=== PATIENT | female | born 1960 | race Caucasian/White ===

== ENCOUNTER 2016-04-04 05:48 | Emergency (ER) | payer SELFPAY ==
[~2016-04-04] VITALS: Ht 157.5 cm; Wt 61.2 kg
[2016-04-04 05:48] VITALS: BP 114/64; PULSE 50; PULSE 60; RESP 10; TEMP 97.1; O2SAT 99
--- NOTE | 2016-04-04 05:48 | NUR ---
Pt noted to fell backward onto the wheelchair in front of ED waiting room, eyes closed, and appeared to have a syncopal episode. MARIELA martínez +MARIELA Minor immediately came to attend pt and brought pt to bed 2. Pt unconcious. Skin pale, cool, non-diaphretic. No injury or bleeding noted
--- NOTE | 2016-04-04 05:48 | NUR ---
Placed in room 02 . Placed on director of cardiac cath lab, blood pressure machine and pulse oximeter. To gown for exam. Side rails up. Report given to MARIELA Cook.
--- NOTE | 2016-04-04 05:50 | NUR ---
ER at bedside examining patient.
[2016-04-04] MEDS ORDERED: NACL 0.9% 1,000 ML IV ONE ×2 (05:55→06:45)
[2016-04-04] MEDS ORDERED: ONDANSETRON HCL 4 MG/2 ML VIAL IVP ONE (06:00)
--- NOTE | 2016-04-04 06:04 | NUR ---
Patient awake and answering questions, AAO x4, appears groggy and lethargic. Patient states she has been feeling unwell "since " and is taking care of her sister "who has cancer" patient thinks she "fainted at home in the bathroom and hit my buttocks" c/o 06/16 buttock pain and epigastric pain 06/16. patient states she had a history of DM, HTN, and Ulcers. Addendum: 04/04/16 at 0714 by SDEDLJ Denies hit to head at home,skin intact, pupils PERRLA.
[2016-04-04 06:07] LABS: BILIRUBIN,URINE 1+ (NEGATIVE); BLOOD, URINE NEGATIVE (NEGATIVE); CLARITY/URINE SL HAZY (CLEAR); COLOR,URINE YELLOW (YELLOW); GLUCOSE,URINE NEGATIVE (NEGATIVE); KETONES,URINE TRACE (NEGATIVE); LEUKOCYTE ESTERASE ,URINE NEGATIVE (NEGATIVE); NITRITE, URINE NEGATIVE (NEGATIVE); PH,URINE 5.5 (5.0-8.0); PROTEIN URINE 2+ (NEGATIVE)
--- NOTE | 2016-04-04 06:07 | NUR ---
Patient BP decreased of 85/53. MD Aranda informed, Verbal order for 2nd Liter of NS to be admin as bolus. Patient tolerating well. Will continue to monitor.
--- NOTE | 2016-04-04 06:10 | NUR ---
Medication reconciliation completed with information provided by patient. Any prior medication reconciliation on file was reviewed and corrected.
[2016-04-04] MEDS ORDERED: LISI10TA5 PO (06:12)
[2016-04-04] MEDS ORDERED: GLU500 PO (06:12)
[2016-04-04 06:13] LABS: BASOPHILS # (AUTO) 0.1 K/uL (0.0-0.2); BASOPHILS % (AUTO) 0.7 % (0.0-2.0); EOSINOPHILS # (AUTO) 0.3 K/uL (0.0-0.4); HEMATOCRIT 40.2 % (36-48); HEMOGLOBIN 13.2 g/dL (12.0-16.0); LYMPHOCYTES % (AUTO) 33.2 % (20.5-51.5); MEAN CORPUSCULAR HEMOGLOBIN 29 pg (27-31); MEAN CORPUSCULAR HGB CONC 33 % (32-36); MEAN CORPUSCULAR VOLUME 88 fL (79.0-98.0); MONOCYTES # (AUTO) 0.6 K/uL (0.0-1.0); MONOCYTES % (AUTO) 7.1 % (1.7-9.3); PLATELET COUNT (AUTO) 265 K/uL (130-430); RED BLOOD CELL COUNT(AUTO) 4.59 MIL/uL (4.2-6.2); RED CELL DISTRIBUTION WIDTH 13.1 % (9.0-15.0)
[2016-04-04 06:16] LABS: BARBITURATE, URINE NEGATIVE (NEG <=200); METHAMPHETAMINES SCREEN,URINE NEGATIVE (NEG <=500); URINE AMPHETAMINE NEGATIVE (NEG <=500)
[2016-04-04 06:17] LABS: BENZODIAZEPINE, URINE NEGATIVE (NEG <=150); CANNABINOID, URINE NEGATIVE (NEG <=50); COCAINE, URINE NEGATIVE (NEG <=150); OPIATE, URINE POSITIVE (NEG <=100); PHENCYCLIDINE SCREEN,URINE NEGATIVE (NEG <=25); UR TRICYCLIC ANTIDEPRESSANTS NEGATIVE (NEG <=300); URINE METHADONE NEGATIVE (NEG <=200); URINE OXYCODONE SCREEN NEGATIVE (NEG <=100); URINE PROPOXYPHENE SCREEN POSITIVE (NEG <=300)
[2016-04-04 06:26] LABS: BACTERIA,URINE FEW /HPF (None Seen); RBC,URINE 0-3 /HPF (0-3)
[2016-04-04 06:27] LABS: ANION GAP 6 (5-15); CHLORIDE 102 mmol/L (98-107); GLUCOSE 128 mg/dL (70-99); HYALINE CASTS, URINE 0-10 /LPF (None Seen); MUCUS,URINE 1+ /LPF (None Seen); POTASSIUM 3.4 mmol/L (3.5-5.1); SODIUM SERUM 137 mmol/L (136-145); UREA NITROGEN, BLOOD 11 mg/dL (8-21)
[2016-04-04 06:31] LABS: ALANINE AMINOTRANSFERASE 49 U/L (12-78); ALBUMIN 3.6 g/dL (3.4-4.8); ASPARTATE AMINOTRANSFERASE 34 U/L (10-37); LIPASE 416 U/L (73-393); TOTAL BILIRUBIN 0.4 mg/dL (0.0-1.0); TOTAL PROTEIN, SERUM 7.6 g/dL (6.4-8.3)
[2016-04-04 06:32] LABS: GFR AFRICAN AMERICAN 83 mL/min (>90); PROTHROMBIN TIME 11.3 SECS (9.5-12.5)
[2016-04-04] MEDS ORDERED: FAMOTIDINE PF 20 MG/2 ML VIAL IVP ONE (06:45)
--- NOTE | 2016-04-04 07:00 | NUR ---
Report given to Ирина SIERRA,care endorsed
[2016-04-04 07:07] LABS: ALCOHOL, BLOOD < 3 mg/dL (<10)
[2016-04-04] MEDS ORDERED: KETOROLAC TROMETHAMINE 30 MG VIAL IVP ONE (07:15)
--- NOTE | 2016-04-04 07:21 | NUR ---
PT HAVING AN ABDOMINAL ULTRASOUND AT THIS TIME, MEDICATED WITH TORADOL 30 MG IVP FOR ABDOMINAL DISCOMFORT, 2/10 SCALE.
--- NOTE | 2016-04-04 07:36 | NUR ---
PT SUPERVISED TOWARDS THE BATHROOM AFTER THE ULTRA SOUND. PT DENIES DIZZINESS, STEADY GAIT. PT VOIDED ADEQUATE AMOUNT.
[2016-04-04 08:17] VITALS: BP 100/56; PULSE 62; RESP 18; TEMP 97.4; O2SAT 97
--- NOTE | 2016-04-04 08:18 | NUR ---
Patient given written and verbal discharge instructions and verbalizes understanding. ER MD JONES discussed with patient the results and treatment provided. Patient in stable condition. ID arm band removed. IV catheter removed intact and dressing applied, no active bleeding. Rx of ZOFRAN AND MYLANTA given. Patient educated on pain management and to follow up with PMD. Pain Scale . Opportunity for questions provided and answered.
== END 2016-04-04 08:17 | disposition home or self-care (01) ==
LOC: SED 05:48
DX: R10.13 Epigastric pain (principal); R55 Syncope and collapse; E11.9 Type 2 diabetes mellitus without complications; I10 Essential (primary) hypertension; Z90.49 Acquired absence of other specified parts of digestive tract
CPT/HCPCS: 36415; 76705; 80053; 80307; 81000; 83690; 85025; 85610; 93005; 96361; 96374; 96375; 99285; G0480; G0481; G0482; J1885; J2405; J3490; J7030